=== PATIENT | female | born 1935 | race Two or more races ===

== ENCOUNTER 2021-06-11 14:24 | Outpatient (CLI) | payer OTHER ==
[~2021-06-11 14:24] MED LIST: ALLEGRA ALLERG180 MG PO; AMLODIPINE BESYL5 MG; ATENOLOL50 MG; AVAPRO300 MG; DICLOFENAC POTA50 MG PO; DIOVAN40 MG; PLAVIX 75MG PO; SUDAFED 12 HOU120 MG PO; TENORMIN50 MG
== END 2021-06-11 14:31 | disposition home or self-care (01) ==
LOC: RAD 14:24
PROVIDERS: ATTEND Physical Medicine & Rehabilitation
DX: S60.222A Contusion of left hand, initial encounter (principal)

== ENCOUNTER 2021-06-18 12:25 | Outpatient (CLI) | payer OTHER | END 2021-06-18 12:35 | disposition home or self-care (01) | LOC: RAD 12:25 | PROVIDERS: ATTEND Physical Medicine & Rehabilitation | DX: S60.222A Contusion of left hand, initial encounter (principal) ==

== ENCOUNTER 2021-10-24 06:47 | Emergency (ER) | payer OTHER ==
[~2021-10-24] VITALS: Ht 157.5 cm; Wt 62.6 kg
[2021-10-24] MEDS ORDERED: ZOLOFT25 MG PO (07:32)
== END 2021-10-24 09:30 | disposition home or self-care (01) ==
LOC: ER 06:47
DX: B02.9 Zoster without complications (principal); I10 Essential (primary) hypertension

== ENCOUNTER 2021-12-17 09:24 | Emergency (ER) | payer OTHER ==
[~2021-12-17] VITALS: Ht 154.9 cm; Wt 62.1 kg
[~2021-12-17 09:24] MED LIST changes: +ZOLOFT25 MG PO
== END 2021-12-17 14:22 | disposition home or self-care (01) ==
LOC: ER 09:24
DX: M70.31 Other bursitis of elbow, right elbow (principal); F03.90 Unspecified dementia, unspecified severity, without behavioral disturbance, psychotic disturbance, mood disturbance, and anxiety; I10 Essential (primary) hypertension

== ENCOUNTER 2021-12-18 16:00 | Inpatient (IN) | payer OTHER ==
[~2021-12-18] VITALS: Ht 154.9 cm; Wt 62.1 kg
--- NOTE | 2021-12-18 16:11 | NUR ---
PTE REFIERE QUE VISITO LA MERCEDES DE EMERGENCIAS EL [place] DE BRAD POR TENER EL CODO DERECHO HINCHADO Y ESTEVES. REFIERE LE DIERON MEDICAMENTOS MELCHOR CONTINUA IGUAL.
--- NOTE | 2021-12-18 17:35 | NUR ---
DR BRIGHT EVALUA A PTE QUIEN ORDENA [place] MEDICO. SE ORIENTA A PTE SOBRE EL MISMO Y REFIERE ENTENDER. SE REALIZAN MUESTRAS DE LABORATORIO BOBBI ORDEN MEDICA BAJO MEDIDAS ASEPTICAS. SE REALIZA EKG EL CUAL SE PRESENTA A DR BRIGHT. PTE PENDIENTE XRAY Y U/A, ENVASE DADO A PTE.
[2021-12-19] MEDS ORDERED: ALPRAZOLAM0.5 MG (08:57)
[2021-12-19] MEDS ORDERED: ALLERGY RELIEF180 MG (08:57)
[2021-12-19] MEDS ORDERED: LUMIGAN2.5 M1 (08:57)
[2021-12-19] MEDS ORDERED: LATANOPROST2.5 ML (08:57)
== END 2021-12-22 22:21 | disposition home or self-care (01) | DRG 501 ==
LOC: ER 16:00 → SURG 21:57
PROVIDERS: Orthopaedic Surgery; ADMIT Internal Medicine; ATTEND Internal Medicine
PROC: 0KQ70ZZ Repair Right Upper Arm Muscle, Open Approach (ICD-10-PCS; 2021-12-18)
PROC: 0MT30ZZ Resection of Right Elbow Bursa and Ligament, Open Approach (ICD-10-PCS; principal; 2021-12-19 08:15)
DX: M70.21 Olecranon bursitis, right elbow (principal); L02.413 Cutaneous abscess of right upper limb; L03.113 Cellulitis of right upper limb; M96.820 Accidental puncture and laceration of a musculoskeletal structure during a musculoskeletal system procedure; I11.9 Hypertensive heart disease without heart failure; E87.6 Hypokalemia; H93.13 Tinnitus, bilateral; Y93.9 Activity, unspecified